=== PATIENT | female | born 1945 | race Caucasian/White ===

== ENCOUNTER 2020-03-11 18:10 | Emergency (ER) | payer MEDICARE, OTHER ==
[2020-03-11 18:27] VITALS: BP 144/75; PULSE 67; BMI 28.0
[2020-03-11 18:38] VITALS: TEMP 98.5
[2020-03-11] MEDS ORDERED: ACETAMINOPHEN 1000 MG/100 ML VIAL (NON FORMULARY) IVPB ONE (19:24)
[2020-03-11] MEDS ORDERED: ACETAMINOPHEN INJECTION 100 ML IVPB ONE (19:32)
[2020-03-11 19:55] LABS: HEMOGLOBIN 11.6 GM/dL (10.7-15.3); RDW 14.6 % (11.6-15.6)
[2020-03-11 20:06] LABS: BASO % 0.4 % (0-2.0); EOS % 1.6 % (0-4.5); HEMATOCRIT 36.7 % (32.4-45.2); MCH 27.9 pg (25.7-33.7); MCHC 31.5 g/dl (32.0-36.0); MEAN CELL VOLUME 88.5 fl (80-96); MEAN PLT VOLUME 9.2 fl (7.5-11.1); MONO % 7.5 % (3.8-10.2); NEUT % 68.5 % (42.8-82.8); PLATELET COUNT 263 K/MM3 (134-434); RBC 4.14 M/mm3 (3.60-5.2); WHITE BLOOD COUNT 11.6 K/mm3 (4.0-10.0)
[2020-03-11 20:11] LABS: CHLORIDE 107 mmol/L (98-107); POTASSIUM 4.9 mmol/L (3.5-5.1); SODIUM 139 mmol/L (136-145)
[2020-03-11 20:13] LABS: ALBUMIN 3.3 g/dl (3.4-5.0); ANION GAP 7 MMOL/L (8-16); CALCIUM 9.2 mg/dL (8.5-10.1); CO2 25 mmol/L (21-32); GLUCOSE,RANDOM 113 mg/dL (74-106)
[2020-03-11 20:16] LABS: CREATININE 1.2 mg/dL (0.55-1.3); SGOT/AST 14 U/L (15-37); SGPT/ALT 14 U/L (13-61)
[2020-03-11 20:17] LABS: BILIRUBIN,TOTAL 0.3 mg/dL (0.2-1); TOT PROT 7.5 g/dl (6.4-8.2)
[2020-03-11 20:20] LABS: ALK PHOS 95 U/L (45-117)
[2020-03-11] MEDS ORDERED: DIPHTH,PERTUSS(ACELL),TET 0.5 ML DISP.SYRIN IM ONE ×3 (22:55→23:11)
== END 2020-03-12 01:35 | disposition home or self-care (01) ==
LOC: JER 18:10
PROC: 3E0333Z Introduction of Anti-inflammatory into Peripheral Vein, Percutaneous Approach (ICD-10-PCS; principal; 2020-03-11)
PROC: 3E0234Z Introduction of Serum, Toxoid and Vaccine into Muscle, Percutaneous Approach (ICD-10-PCS; 2020-03-11)
DX: S00.83XA Contusion of other part of head, initial encounter (principal)
CPT/HCPCS: 36415; 70450-TC; 71045-TC-FY; 72125-TC; 72170-TC-FY; 80053; 82962; 84484; 85025; 90471; 90715; 93005; 93010; 96374; 99285-25; J0131

== ENCOUNTER 2023-05-08 09:09 | Inpatient (IN) | payer MEDICARE, OTHER ==
[2023-05-08 09:21] VITALS: BMI 32.5
[2023-05-08] MEDS ORDERED: DIPHTH,PERTUSS(ACELL),TET 0.5 ML DISP.SYRIN IM ONE (10:12)
[2023-05-08] MEDS: DIPHTH,PERTUSS(ACELL),TET 0.5 ML DISP.SYRIN IM ONE (10:36)
[2023-05-08] MEDS: ACETAMINOPHEN 1000 MG/100 ML BAG IVPB ONE (10:37)
[2023-05-08] MEDS ORDERED: ACETAMINOPHEN INJECTION 100 ML IVPB ONE (10:38)
[2023-05-08 10:41] LABS: BASO % 0.6 % (0-2.0); HEMATOCRIT 30.2 % (32.4-45.2); HEMOGLOBIN 9.2 GM/dL (10.7-15.3); MCH 23.2 pg (25.7-33.7); MCHC 30.5 g/dl (32.0-36.0); MEAN CELL VOLUME 76.1 fl (80-96); MEAN PLT VOLUME 8.6 fl (7.5-11.1); MONO % 6.5 % (3.8-10.2); NEUT % 87.9 % (42.8-82.8); PLATELET COUNT 236 10^3/uL (134-434); RBC 3.96 M/mm3 (3.60-5.2); RDW 16.1 % (11.6-15.6); WHITE BLOOD COUNT 11.4 K/mm3 (4.0-10.0)
[2023-05-08 10:56] LABS: POTASSIUM 4.2 mmol/L (3.5-5.1)
[2023-05-08 10:58] LABS: CALCIUM 8.9 mg/dL (8.5-10.1)
[2023-05-08 11:00] LABS: ALBUMIN 2.9 g/dl (3.4-5.0)
[2023-05-08 11:03] LABS: CREATININE 1.9 mg/dL (0.55-1.3)
[2023-05-08 11:05] LABS: TOT PROT 7.7 g/dl (6.4-8.2)
[2023-05-08 11:16] LABS: BILIRUBIN,TOTAL 0.3 mg/dL (0.2-1)
[2023-05-08] MEDS: SODIUM CHLORIDE 0.9% 500 ML INFUS.BAG IV ONE ×2 (11:27→14:22)
[2023-05-08 14:26] LABS: BASO % 0.5 % (0-2.0); HEMATOCRIT 26.3 % (32.4-45.2); HEMOGLOBIN 8.3 GM/dL (10.7-15.3); MCH 23.7 pg (25.7-33.7); MCHC 31.4 g/dl (32.0-36.0); MEAN CELL VOLUME 75.4 fl (80-96); MEAN PLT VOLUME 8.5 fl (7.5-11.1); MONO % 7.9 % (3.8-10.2); NEUT % 80.6 % (42.8-82.8); PLATELET COUNT 219 10^3/uL (134-434); RBC 3.49 M/mm3 (3.60-5.2); RDW 16.1 % (11.6-15.6); WHITE BLOOD COUNT 8.9 K/mm3 (4.0-10.0)
[2023-05-08 14:44] LABS: POTASSIUM 3.7 mmol/L (3.5-5.1)
[2023-05-08 14:46] LABS: ALBUMIN 2.6 g/dl (3.4-5.0); BLOOD UREA NITROGEN 39.8 mg/dL (7-18); CALCIUM 8.3 mg/dL (8.5-10.1)
[2023-05-08 14:50] LABS: CREATININE 1.7 mg/dL (0.55-1.3)
[2023-05-08 14:51] LABS: BILIRUBIN,TOTAL 0.3 mg/dL (0.2-1); TOT PROT 6.5 g/dl (6.4-8.2)
[2023-05-08] MEDS ORDERED: ACETAMINOPHEN 500 MG TABLET (FP) PO PRN (16:03)
[2023-05-08] MEDS: LACTATED RINGERS SOLUTION 1,000 ML/1,000 ML INFUS.BAG IV SCH (16:25)
[2023-05-08] MEDS: INSULIN ASPART SLIDING SCALE (NOVOLOG) 1 VIAL SQ SCH (16:39)
[2023-05-09 01:02] LABS: EPI CELLS 19 /uL (0-25.1); HYALINE CASTS 1 /uL (0-3.1); URINE APPEARANCE CLEAR; URINE BACTERIA 156 /uL (0-1359); URINE BILIRUBIN NEGATIVE (NEGATIVE); URINE COLOR YELLOW; URINE GLUCOSE (UA) 3+ (NEGATIVE); URINE KETONE TRACE (NEGATIVE); URINE LEUK ESTERASE TRACE (NEGATIVE); URINE NITRITE NEGATIVE (NEGATIVE); URINE PROTEIN 1+ (NEGATIVE); URINE RBC 17 /uL (0-23.9); URINE UROBILINOGEN 0.2 mg/dL (0.2-1.0); URINE WBC 39 /uL (0-25.8)
[2023-05-09 04:54] LABS: YEAST NONE SEEN (NEGATIVE)
[2023-05-09 07:32] LABS: BASO % 0.5 % (0-2.0); EOS % 0.3 % (0-4.5); HEMATOCRIT 28.7 % (32.4-45.2); HEMOGLOBIN 8.9 GM/dL (10.7-15.3); LYMPH % 14.6 % (8-40); MCH 23.6 pg (25.7-33.7); MCHC 30.9 g/dl (32.0-36.0); MEAN CELL VOLUME 76.5 fl (80-96); MEAN PLT VOLUME 8.8 fl (7.5-11.1); MONO % 6.8 % (3.8-10.2); NEUT % 77.8 % (42.8-82.8); PLATELET COUNT 241 10^3/uL (134-434); RBC 3.75 M/mm3 (3.60-5.2); RDW 16.4 % (11.6-15.6); WHITE BLOOD COUNT 9.7 K/mm3 (4.0-10.0)
[2023-05-09 07:56] LABS: POTASSIUM 4.5 mmol/L (3.5-5.1)
[2023-05-09 07:59] LABS: CALCIUM 8.5 mg/dL (8.5-10.1)
[2023-05-09 08:00] LABS: BLOOD UREA NITROGEN 35.3 mg/dL (7-18)
[2023-05-09 08:01] LABS: CREATININE 1.5 mg/dL (0.55-1.3)
[2023-05-09 08:15] LABS: HEMOGLOBIN 9.2 GM/dL (10.7-15.3); MCH 23.4 pg (25.7-33.7); MCHC 30.7 g/dl (32.0-36.0); MEAN CELL VOLUME 76.4 fl (80-96); MEAN PLT VOLUME 8.4 fl (7.5-11.1); PLATELET COUNT 255 10^3/uL (134-434); RBC 3.92 M/mm3 (3.60-5.2); RDW 16.4 % (11.6-15.6); WHITE BLOOD COUNT 9.5 K/mm3 (4.0-10.0)
[2023-05-09] MEDS ORDERED: FAMOTIDINE 20 MG TABLET ONE (09:47)
[2023-05-09] MEDS: FAMOTIDINE 20 MG TABLET PO SCH (09:51)
[2023-05-09] MEDS: ROSUVASTATIN CA 40 MG TABLET PO ONE (10:19)
[2023-05-09] MEDS: ASPIRIN COATED 81 MG TABLET.EC PO SCH (10:19)
[2023-05-09] MEDS ORDERED: ASPIRIN 81 MG CHEWABLE TABLETS ONE (10:19)
[2023-05-09] MEDS ORDERED: ROSUVASTATIN CA 20 MG TABLET ONE (10:20)
[2023-05-09] MEDS ORDERED: DOCUSATE SODIUM 100 MG CAPSULE (FP) PO PRN (15:19)
[2023-05-09] MEDS ORDERED: ACETAMINOPHEN INJECTION 100 ML IVPB ONE (18:40)
[2023-05-09] MEDS: ACETAMINOPHEN 1000 MG/100 ML BAG IVPB PRN (18:43)
[2023-05-09] MEDS: FERROUS SO4 325 MG TABLET (FP) PO SCH (22:21)
[2023-05-09] MEDS: ATORVASTATIN CA 40 MG TABLET (FP) PO SCH (22:21)
[2023-05-10 07:44] LABS: BASO % 0.7 % (0-2.0); HEMATOCRIT 27.4 % (32.4-45.2); HEMOGLOBIN 8.8 GM/dL (10.7-15.3); LYMPH % 19.5 % (8-40); MCH 24.2 pg (25.7-33.7); MCHC 32.2 g/dl (32.0-36.0); MEAN CELL VOLUME 75.2 fl (80-96); MEAN PLT VOLUME 8.9 fl (7.5-11.1); MONO % 9.3 % (3.8-10.2); NEUT % 69.5 % (42.8-82.8); PLATELET COUNT 233 10^3/uL (134-434); RBC 3.64 M/mm3 (3.60-5.2); RDW 16.3 % (11.6-15.6); WHITE BLOOD COUNT 6.6 K/mm3 (4.0-10.0)
[2023-05-10 07:57] LABS: BLOOD UREA NITROGEN 33.3 mg/dL (7-18)
[2023-05-10 07:58] LABS: ALBUMIN 2.3 g/dl (3.4-5.0); CALCIUM 8.3 mg/dL (8.5-10.1)
[2023-05-10 07:59] LABS: CREATININE 1.4 mg/dL (0.55-1.3)
[2023-05-10 08:00] LABS: BILIRUBIN,TOTAL 0.4 mg/dL (0.2-1); TOT PROT 6.2 g/dl (6.4-8.2)
[2023-05-10] MEDS ORDERED: PATIENT'S OWN MEDICATION (NON-FORMULARY) (Patiromer Calcium Sorbitex [Veltassa] 8.4 GM Pow PO SCH (10:00)
[2023-05-10] MEDS: CYANOCOBALAMIN 1,000 MCG TABLET (FP) PO SCH (10:16)
[2023-05-10] MEDS: ASPIRIN 81 MG CHEWABLE TABLETS PO SCH (10:16)
[2023-05-11 07:28] LABS: POTASSIUM 4.1 mmol/L (3.5-5.1)
[2023-05-11 07:29] LABS: BASO % 0.4 % (0-2.0); EOS % 1.9 % (0-4.5); HEMATOCRIT 27.3 % (32.4-45.2); HEMOGLOBIN 8.6 GM/dL (10.7-15.3); MCHC 31.5 g/dl (32.0-36.0); MEAN CELL VOLUME 76.1 fl (80-96); MEAN PLT VOLUME 8.9 fl (7.5-11.1); MONO % 10.2 % (3.8-10.2); NEUT % 59.5 % (42.8-82.8); PLATELET COUNT 242 10^3/uL (134-434); RBC 3.59 M/mm3 (3.60-5.2); RDW 16.4 % (11.6-15.6)
[2023-05-11 07:33] LABS: ALBUMIN 2.4 g/dl (3.4-5.0); CALCIUM 8.1 mg/dL (8.5-10.1)
[2023-05-11 07:34] LABS: BLOOD UREA NITROGEN 28.3 mg/dL (7-18)
[2023-05-11 07:36] LABS: CREATININE 1.3 mg/dL (0.55-1.3)
[2023-05-11 07:38] LABS: BILIRUBIN,TOTAL 0.3 mg/dL (0.2-1); TOT PROT 6.1 g/dl (6.4-8.2)
[2023-05-11] MEDS: LACTATED RINGERS SOLUTION 1,000 ML/1,000 ML INFUS.BAG IV SCH (23:45)
[2023-05-12 07:29] LABS: BASO % 0.8 % (0-2.0); HEMATOCRIT 27.3 % (32.4-45.2); HEMOGLOBIN 8.8 GM/dL (10.7-15.3); LYMPH % 31.9 % (8-40); MCH 24.1 pg (25.7-33.7); MEAN CELL VOLUME 75.1 fl (80-96); MEAN PLT VOLUME 8.7 fl (7.5-11.1); MONO % 10.3 % (3.8-10.2); PLATELET COUNT 240 10^3/uL (134-434); RBC 3.64 M/mm3 (3.60-5.2); RDW 16.6 % (11.6-15.6); WHITE BLOOD COUNT 6.5 K/mm3 (4.0-10.0)
[2023-05-12 07:48] LABS: POTASSIUM 4.3 mmol/L (3.5-5.1)
[2023-05-12 07:56] LABS: ALBUMIN 2.3 g/dl (3.4-5.0); BLOOD UREA NITROGEN 28.4 mg/dL (7-18)
[2023-05-12 07:58] LABS: CREATININE 1.3 mg/dL (0.55-1.3)
[2023-05-12 08:00] LABS: BILIRUBIN,TOTAL 0.2 mg/dL (0.2-1); TOT PROT 6.1 g/dl (6.4-8.2)
[2023-05-12 15:15] VITALS: BP 130/52; PULSE 58; RESP 16; TEMP 98.4
[2023-05-13] MEDS ORDERED: ERGOCALCIFEROL (VIT D2) 50,000 UNIT (1.25 MG) CAPSULE PO SCH (10:00)
== END 2023-05-12 16:54 | DRG 683 ==
LOC: JER 09:09 → JERBED 13:28 → J4W 05-09 19:00
PROVIDERS: ADMIT Internal Medicine
DX: N17.9 Acute kidney failure, unspecified (principal); I24.89 Other forms of acute ischemic heart disease; I69.351 Hemiplegia and hemiparesis following cerebral infarction affecting right dominant side; M62.82 Rhabdomyolysis; I25.10 Atherosclerotic heart disease of native coronary artery without angina pectoris; E11.9 Type 2 diabetes mellitus without complications; G56.32 Lesion of radial nerve, left upper limb; I12.9 Hypertensive chronic kidney disease with stage 1 through stage 4 chronic kidney disease, or unspecified chronic kidney disease; E11.22 Type 2 diabetes mellitus with diabetic chronic kidney disease; N18.9 Chronic kidney disease, unspecified; K21.9 Gastro-esophageal reflux disease without esophagitis; D64.9 Anemia, unspecified; R20.0 Anesthesia of skin; S40.812A Abrasion of left upper arm, initial encounter; W06.XXXA Fall from bed, initial encounter; Y92.092 Bedroom in other non-institutional residence as the place of occurrence of the external cause
CPT/HCPCS: 36415; 70450-TC; 71045-TC-FY; 72125-TC; 72170-TC-FY; 73030-TC-LT-FY; 73060-TC-LT-FY; 73070-TC-LT-FY; 73218-TC-LT; 80048; 80053; 81003; 82550; 82553; 82962; 84484; 85025; 85027; 87086; 87635; 90715; 93005; 93010; 93306-TC; 97116-GP; 97162-GP; 99285-25; J0131